=== PATIENT | female | born 1945 | race American Indian/Alaskan Native ===

== ENCOUNTER 2019-09-14 09:39 | Emergency (ER) | payer MEDICARE, BC ==
[~2019-09-14] VITALS: Ht 165.1 cm; Wt 89.9 kg
--- OUTSIDE RECORDS SUMMARY | 2019-09-14 09:42 | XMS REPORT | Summary of Care ---
Author Author Lenore Miranda M.A. Unknown Address [facility] Phone Unavailable Care Team Providers Care Stem Sizer Name Role Phone GET Green, LUIS Unavailable Unavailable ZOE Quiroga, ANI Jarquin Unavailable Lenore Miranda M.A. Unavailable Unavailable ZOE COLLINS PA, ANI OLIVO Unavailable Unavailable GET CH, LUIS Unavailable Unavailable MADELYN YEUNG [place], CORINNE Unavailable Unavailable VIOLETTA COLLINS, ANDREA Castro Unavailable Unavailable VIVI VAZQUEZP, STEPHANIE Unavailable Unavailable CARLOS COLLINS, JESSE Unavailable Unavailable Unavailable Unavailable Functional Status Name Dates Details Functional status health issues are not documented Status: Name Dates Details Cognitive status health issues are not documented Status: Problems Name Dates Details Need for pneumococcal vaccination (V03.82, Z23) Status: Active Visit for screening mammogram (V76.12, Z12.31) Status: Active Hematuria (599.70, R31.9) Status: Active Burning with urination (788.1, R30.0) Status: Active Encounter for mini-mental status examination Status: Active Arthralgia of hand, left (719.44, M25.542) Status: Active Arthralgia of hand, right (719.44, M25.541) Status: Active Arthralgia of both knees (719.46, M25.561) Status: Active Generalized osteoarthritis of multiple sites (715.09, M15.9) Status: Active 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, 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0, Z13.31) Status: Active Acute UTI (599.0, N39.0) Status: Active Obesity (BMI 30-39.9) (278.00, E66.9) Status: Active Dietary counseling (V65.3, Z71.3) Status: Active Low back pain (724.2, M54.5) Status: Active Encounter for hepatitis C virus screening test for high risk patient (V73.89, Z11.59) Status: Active BMI 37.0-37.9, adult (V85.37, Z68.37) Status: Active Mammogram declined (V64.2, Z53.20) Status: Active Colonoscopy refused (V64.2, Z53.20) Status: Active Patient refused evaluation (V64.2, Z53.20) Status: Active Hypothyroidism (244.9, E03.9) Status: Active Heart murmur (785.2, R01.1) Status: Active Urinary tract infection (599.0, N39.0) Status: Active Ascending aorta dilation (447.71, I77.810) Status: Active Acute gastritis without hemorrhage, unspecified gastritis type (535.00, K29.00) Status: Active Dyspepsia (536.8, R10.13) Status: Active Medications Name Dates Details Levothyroxine Sodium 50 MCG Oral Tablet TAKE ONE TABLET BY MOUTH DAILY Quantity: 90 DEUTSCH P.A., LUIS * Start : 22-Aug-2013 Active Tylenol Extra Strength TABS TAKE TABLET PRN * Refills: 0 Active Nebulizer USE DIRECTED. * Quantity: 1 Refills: 0 DEUTSCH P.A., LUIS * Start : 25-May-2017 Active Omeprazole 40 MG Oral Capsule Delayed Release TAKE ONE CAPSULE BY MOUTH DAILY * Quantity: 90 Refills: 1 DEUTSCH P.A., LUIS * Start : 23-Oct-2017 Active TruBiotics Oral Capsule 1 tab qd * Refills: 0 Active Cholestyramine Light 4 GM Oral Packet MIX THE CONTENTS OF 1 POWDER PACKET WITH 2-6 OZ OF NONCARBONATED BEVERAGE AND SW ALLOW ONCE DAILY. * Quantity: 1 Refills: 2 ANI ENRIQUEZ M.D. Start : 19-Jun-2019 Active 60 Packet Box Allergies and Adverse Reactions Name Dates Details Ciprofloxacin HCl TABS (Allergy) Status: Denied Codeine Sulfate TABS (Allergy) Status: Active Colchicine TABS (Allergy) Status: Active Past Medical History Name Dates Details History of allergic rhinitis (V12.69, Z87.09) Status: Resolved History of Aortic valve sclerosis (424.1, I35.8) Status: Resolved History of Arthritis (V13.4) Status: Resolved History of At low risk for fall (V49.89, Z91.81) Status: Resolved History of Depression screening (V79.0, Z13.31) Status: Resolved History of edema (V13.89, Z87.898) Status: Resolved History of Encounter for mini-mental status examination Status: Resolved History of hypothyroidism (V12.29, Z86.39) Status: Resolved History of Osteoarthritis (V13.4) Status: Resolved History of Osteoporosis (733.00, M81.0) Status: Resolved Procedures Procedure Dates Details [N] 2D Echo complete, with Doppler [id number] Date: 21-May-2019 History of Appendectomy Completed History of Hysterectomy Completed History of Knee Replacement Completed Immunization Name Dates Details Zostavax 47726 UNT/0.65ML Subcutaneous Solution Reconstituted on: 19-Mar-2012 Fluzone INJ Lot #: [id number] on: 13-Feb-2013 Fluzone INJ Lot #: [id number] on: 25-Mar-2014 Prevnar 13 Intramuscular Suspension Lot #: [id number] on: 05-Nov-2014 Fluzone Quadrivalent 0.5 ML Intramuscular Suspension Lot #: [id number] on: 13-Feb-2015 Fluzone Quadrivalent 0.25 ML SUSP Lot #: [id number] on: 24-Feb-2016 Pneumovax 23 25 MCG/0.5ML Injection Injectable Lot #: [id number] on: 09-Aug-2016 Fluzone Quadrivalent 0.5 ML Intramuscular Suspension Lot #: [id number] on: 20-Feb-2017 Fluzone High-Dose 0.5 ML Intramuscular Suspension Prefilled Syringe on: 10-Feb-2018 Fluzone High-Dose 0.5 ML Intramuscular Suspension Prefilled Syringe Lot #: [id number] on: 07-Mar-2019 Family History Name Dates Details Family history of Cancer Status: Active Name Dates Details Family history of Arthritis (V17.7) Status: Active Name Dates Details Family history of Diabetes Mellitus (V18.0) Status: Active Social History Name Dates Details - Status: Name Dates Details Never smoker Vital Signs Date Test Result Details :30 BP Systolic 105 mm[Hg] Status: Comments: Location: RUE; Position: Sitting BP Diastolic 61 mm[Hg] Status: Comments: Location: RUE; Position: Sitting Height 64 in Status: Weight 202.125 lb Status: Body Mass Index Calculated 34.69 kg/m2 Status: Body Surface Area Calculated 1.96 m2 Status: Temperature 98.6 f Status: Comments: Method: Oral Heart Rate 68 /min Status: Comments: Location: R Brachial Artery; :31 Physical Findings 0 Status: Comments: PHQ-9 Adult Depression Screening :54 BP Systolic 83 mm[Hg] Status: Comments: Location: LUE; Position: Sitting BP Diastolic 55 mm[Hg] Status: Comments: Location: LUE; Position: Sitting Height 64 in Status: Weight 199.1875 lb Status: Body Mass Index Calculated 34.19 kg/m2 Status: Body Surface Area Calculated 1.95 m2 Status: Temperature 97.2 f Status: Comments: Method: Temporal Heart Rate 88 /min Status: Comments: Location: L Brachial Artery; Respiration Rate 16 /min Status: Physical Findings 0 Status: Comments: Alcohol Screen - How many times in the past yr have you had 5 (for M) or 4 (for F) or 4 (for all > 65yrs) or more drinks in a day? Results Date Description Value Details Results not documented Plan of Care Name Dates Details Planned Observations Planned Goals not documented Planned Encounters Urogynecologist Instructions Name Dates Details Instructions not documented Encounters Appointment; LUIS DEUTSCH PAmandeep Encounter Diagnosis: Problem not documented On: 23-Oct-2017 8:45 Appointment; LUIS DEUTSCH PAmandeep Encounter Diagnosis: Problem not documented On: 09-Apr-2018 8:00 Appointment; LUIS DEUTSCH P.A. Encounter Diagnosis: Problem not documented On: 24-Apr-2018 7:45 Appointment; LUIS DEUTSCH P.A. Encounter Diagnosis: Problem not documented On: 02-Oct-2018 8:45 Appointment; CORINNE JOSHI D.O. Encounter Diagnosis: Problem not documented On: 01-Dec-2018 10:15 Appointment; ELAINE FRITZ NP Encounter Diagnosis: Problem not documented On: 16-Jan-2019 15:30 Appointment; MADDIE NANCE P.A. Encounter Diagnosis: Problem not documented On: 07-Mar-2019 8:30 Appointment; LUIS DEUTSCH P.A. Encounter Diagnosis: Problem not documented On: 16-Apr-2019 10:30 Appointment; STEPHANIE TRINIDAD NP Encounter Diagnosis: Problem not documented On: 21-May-2019 7:30 Appointment; ANI ENRIQUEZ M.D. Encounter Diagnosis: Problem not documented On: 19-Jun-2019 9:00 Appointment; ANI ENRIQUEZ M.D. Encounter Diagnosis: Problem not documented On: 15-Jul-2019 9:30
--- OUTSIDE RECORDS SUMMARY | 2019-09-14 09:42 | XMS REPORT | Summary of Care ---
Author Author ZOE Quiroga, ANI Jordan Unknown Address Unknown Phone Unavailable Care Team Providers Care Sales Operations Name Role Phone GET P.A., LUIS Unavailable Unavailable ANI ENRIQUEZ M.D. Unavailable Britton ENRIQUEZ MD [place], ANI OLIVO Unavailable Unavailable GET CH, LUIS Unavailable Unavailable MADELYN YEUNG [place], CORINNE Unavailable Unavailable VIOLETTA COLLINS, ANDREA Castro [...] Quantity: 1 Refills: 2 ANI ENRIQUEZ M.D. * Start : 19-Jun-2019 Active 60 Packet Box [...] Details [N] 2D Echo complete, with Doppler [id number] Date: 21-May-2019 History of Appendectomy Completed History of Hysterectomy Completed History of Knee Replacement Completed Immunization Name Dates Details Zostavax 40117 UNT/0.65ML Subcutaneous Solution Reconstituted on: 19-Mar-2012 Fluzone INJ Lot #: [id number] on: 13-Feb-2013 Fluzone INJ Lot #: [id number] on: 25-Mar-2014 Prevnar 13 Intramuscular Suspension Lot #: [id number] on: 05-Nov-2014 Fluzone Quadrivalent 0.5 ML Intramuscular Suspension Lot #: [id number] on: 13-Feb-2015 Fluzone Quadrivalent 0.25 ML SUSP Lot #: [id number] on: 24-Feb-2016 Pneumovax 23 25 MCG/0.5ML Injection Injectable Lot #: [id number] on: 09-Aug-2016 Fluzone Quadrivalent 0.5 ML Intramuscular Suspension Lot #: [id number] on: 20-Feb-2017 Fluzone High-Dose 0.5 ML Intramuscular Suspension Prefilled Syringe on: 10-Feb-2018 Fluzone High-Dose 0.5 ML Intramuscular Suspension Prefilled Syringe Lot #: [id number] on: 07-Mar-2019 Family History Name Dates Details [...] Details Planned Observations Planned Goals not documented Interventions Provided Plan* Plan today is to actually release the patient from the post cholecystectomy follow-up. She is doing well and will not need follow-up for at least 3 to 6 months. All questions were answered. Instructions Name Dates Details Instructions not documented Encounters Appointment; LUIS DEUTSCH P.A. Encounter Diagnosis: Problem not documented On: 23-Oct-2017 [...]
--- OUTSIDE RECORDS SUMMARY | 2019-09-14 09:42 | XMS REPORT | Summary of Care ---
Author Author ZOE Quiroga, ANI Jordan Unknown Address Unknown Phone Unavailable Care Team Providers Care Goring Cutter Name Role Phone DEUTSCH P.A., LUIS Unavailable Unavailable ZOE Quiroga, ANI Unavailable Unavailable ZOE COLLINS [place], ANI OLIVO Unavailable Unavailable CARLOS COLLINS, JESSE Unavailable Unavailable GET CH, LUIS Unavailable Unavailable MADELYN YEUNG [place], CORINNE Unavailable Unavailable VIOLETTA COLLINS, ANDREA Castro Unavailable Unavailable VIVI ELECTRO TECH, STEPHANIE Unavailable Unavailable Unavailable Unavailable Functional Status Name [...] R10.13) Status: Active Medications Name Dates Details Furosemide 40 MG Oral Tablet TAKE ONE-HALF TABLET BY MOUTH DAILY NEEDED Quantity: 45 DEUTSCH P.A., LUIS * Start : 23-Sep-2013 Active Levothyroxine Sodium 50 MCG Oral Tablet TAKE ONE TABLET BY MOUTH DAILY * Quantity: 90 Refills: 1 EDUTSCH P.A., LUIS * Start : 22-Aug-2013 Active [...] Details [N] 2D Echo complete, with Doppler [id number] Date: 21-May-2019 History of Appendectomy Completed History of Hysterectomy Completed History of Knee Replacement Completed Immunization Name Dates Details Zostavax 30782 UNT/0.65ML Subcutaneous Solution Reconstituted on: 19-Mar-2012 Fluzone INJ Lot #: [id number] on: 13-Feb-2013 Fluzone INJ Lot #: [id number] on: 25-Mar-2014 Prevnar 13 Intramuscular Suspension Lot #: [id number] on: 05-Nov-2014 Fluzone Quadrivalent 0.5 ML Intramuscular Suspension Lot #: [id number] on: 13-Feb-2015 Fluzone Quadrivalent 0.25 ML SUSP Lot #: [id number] on: 24-Feb-2016 Pneumovax 23 25 MCG/0.5ML Injection Injectable Lot #: [id number] on: 09-Aug-2016 Fluzone Quadrivalent 0.5 ML Intramuscular Suspension Lot #: [id number] on: 20-Feb-2017 Fluzone High-Dose 0.5 ML Intramuscular Suspension Prefilled Syringe on: 10-Feb-2018 Fluzone High-Dose 0.5 ML Intramuscular Suspension Prefilled Syringe Lot #: [id number] on: 07-Mar-2019 Family History Name Dates Details Family history of Cancer Status: Active Name Dates Details Family history of Arthritis (V17.7) Status: Active Name Dates Details Family history of Diabetes Mellitus (V18.0) Status: Active Social History Name Dates Details - Status: Name Dates Details Never smoker Vital Signs Date Test Result Details :31 Physical Findings 0 Status: Comments: PHQ-9 [...] 65yrs) or more drinks in a day? :44 BP Systolic 121 mm[Hg] Status: Comments: Location: LUE; Position: Sitting BP Diastolic 63 mm[Hg] Status: Comments: Location: LUE; Position: Sitting Height 64 in Status: Weight 211.125 lb Status: Body Mass Index Calculated 36.24 kg/m2 Status: Body Surface Area Calculated 2 m2 Status: Temperature 97.8 f Status: Comments: Method: Temporal Heart Rate 61 /min Status: Respiration Rate 16 /min Status: Physical Findings 0 Status: Comments: Alcohol Screen - How many times in the past yr have you had 5 (for M) or 4 (for F) or 4 (for all > 65yrs) or more drinks in a day? Physical Findings 0 Status: Comments: Pain Scale Results Date Description Value Details :04 [O] Urine Dipstick (In Office) Glucose negative (Normal) LEUKOCYTES large NITRITE negative (Normal) UROBILINOGEN negative (Normal) PROTEIN 30 pH 5 (Normal) URINE BLOOD 250 SPECIFIC GRAVITY 1.010 KETONES negative (Normal) BILIRUBIN negative (Normal) COLOR URINE yellow (Normal) APPEARANCE clear (Normal) [id number] [[facility]] CULTURE, URINE, ROUTINE CULTURE (Abnormal) Comments: CULTURE, URINE, ROUTINE Micro Number: [id number] Test Status: Final Specimen Source: URINE Specimen Quality: Adequate Result: Greater than 100,000 CFU/mL of E scherichia coli E.coli INT PATRICK AMOX/CLAVULANATE S <=2 AMPICILLIN S <=2 AMP/SULBACTAM S <=2 CEFAZOLIN NR <=4 2 CEFEPIME S <=1 CEFTRIAXONE S <=1 CIPROFLOXACIN S <=0.25 GENTAMICIN S <=1 IMIPENEM S <=0.25 LEVOFLOXACIN S <=0.12 NITROFURANTOIN S <=16 PIP/TAZOBACTAM S <=4 TOBRAMYCIN S <=1 TRIMETHOPRIM/SULFA S <=20S=Susceptible I=Intermediate R=Resistant *=Not TestedNR=Not Reported NN=See Therapy CommentsTHERAPY COMMENTS Note 1: For infections other than uncomplicated UTI caused by E. coli, K. pneumoniae or P. mirabilis: Cefazolin is resistant if PATRICK > or=8 mcg/mL. (Distinguishing susceptible versus intermediate for isolates with PATRICK < or=4 mcg/mL requires additional testing.) Note 2: For uncomplicated UTI caused by E. coli, K. pneumoniae or P. mirabilis: Cefazolin is susceptible if PATRICK <32 mcg/mL and predicts susceptible to the oral agents cefaclor, cefdinir, cefpodoxime, cefprozil, cefuroxime, cephalexin and loracarbef. Plan of Care Name Dates Details Planned Observations Planned Goals not documented Interventions Provided Medication Changes* Cholestyramine Light 4 GM Oral Packet - Start Plan* The patient's discomfort today may be due to her previous history of acid indigestion but also potentially could be related to bile reflux gastritis. Advised to restart her omeprazole if this is not effective after the next few days she can picker and packer the prescription for Ward Otero to the pharmacy. She will contact us in a few days for follow-up by phone. Of note she is not taking the furosemide nor other medications for her blood pressure. Her blood pressure today is low and she is slightly symptomatic with this. This will be followed as necessary. All questions were answered. Instructions Name Dates Details Instructions not documented Encounters Appointment; MADDIE NANCE P.A. Encounter Diagnosis: Problem not documented On: 19-Jun-2017 14:00 Appointment; LUIS DEUTSCH P.A. Encounter Diagnosis: Problem not documented On: 23-Oct-2017 8:45 Appointment; LUIS DEUTSCH P.A. Encounter Diagnosis: Problem not documented On: 09-Apr-2018 [...] not documented On: 21-May-2019 7:30 Appointment; ANI ENRIQEUZ M.D. Encounter Diagnosis: Problem not documented On: 19-Jun-2019 9:00
--- OUTSIDE RECORDS SUMMARY | 2019-09-14 09:42 | XMS REPORT | Summary of Care ---
Author Author ZOE Quiroga, ANI Jordan Unknown Address Unknown Phone Unavailable Care Team Providers Care Retort Furnace Helper Name Role Phone GET P.A., LUIS Unavailable Unavailable ANI ENRIQUEZ M.D. Unavailable Britton ENRIQUEZ MD [place], ANI OLIVO Unavailable Unavailable GET CH, LUIS Unavailable Unavailable MADELYN YEUNG [place], CORINNE Unavailable Unavailable VIOLETTA COLLINS, ANDREA Csatro Unavailable Unavailable VIVI VAZQUEZP, STEPHANIE Unavailable Unavailable [...] Details [N] 2D Echo complete, with Doppler [id number] Date: 21-May-2019 History of Appendectomy Completed History of Hysterectomy Completed History of Knee Replacement Completed Immunization Name Dates Details Zostavax 14773 UNT/0.65ML Subcutaneous Solution Reconstituted on: 19-Mar-2012 Fluzone INJ Lot #: [id number] on: 13-Feb-2013 Fluzone INJ Lot #: [id number] on: 25-Mar-2014 Prevnar 13 Intramuscular Suspension Lot #: [id number] on: 05-Nov-2014 Fluzone Quadrivalent 0.5 ML Intramuscular Suspension Lot #: [id number] on: 13-Feb-2015 Fluzone Quadrivalent 0.25 ML SUSP Lot #: [id number] on: 24-Feb-2016 Pneumovax 23 25 MCG/0.5ML Injection Injectable Lot #: [id number] on: 09-Aug-2016 Fluzone Quadrivalent 0.5 ML Intramuscular Suspension Lot #: [id number] on: 20-Feb-2017 Fluzone High-Dose 0.5 ML Intramuscular Suspension Prefilled Syringe on: 10-Feb-2018 Fluzone High-Dose 0.5 ML Intramuscular Suspension Prefilled Syringe Lot #: [id number] on: 07-Mar-2019 Family History Name Dates Details [...] Planned Goals not documented Planned Encounters Urogynecologist Urogynecologist Instructions Name Dates Details Instructions not documented Encounters Appointment; LUIS DEUTSCH P.A. Encounter Diagnosis: Problem not documented On: 23-Oct-2017 8:45 Appointment; LUIS DEUTSCH PAmandeep Encounter Diagnosis: Problem not documented On: 09-Apr-2018 8:00 Appointment; LUIS DEUTSCH PAmandeep Encounter Diagnosis: Problem not documented On: 24-Apr-2018 [...]
--- OUTSIDE RECORDS SUMMARY | 2019-09-14 09:43 | XMS REPORT | Summary of Care ---
Author Author Mundo Meade, Sarah Organization Unknown Address Unknown Phone Unavailable Care Team Providers Care Grocery Store Courtesy Clerk Name Role Phone GET P.A., LUIS Unavailable Unavailable RODRI Sierra, SUDHAKAR Unavailable Unavailable Mundo Meade, May Unavailable Unavailable ZOE COLLINS DE, ANI OLIVO Unavailable Unavailable GET CH, LUIS Unavailable Unavailable MADELYN YEUNG DE, CORINNE Unavailable Unavailable VIOLETTA COLLINS, ADNREA Castro Unavailable Unavailable ZOE Quiroga, ANI Unavailable Unavailable CARLOS COLLINS, JESSE Unavailable Unavailable RODRI YEUNG, SUDHAKAR Ornelas Unavailable Unavailable VIVI DONOHUE, STEPHANIE Unavailable Unavailable Unavailable Unavailable Functional Status [...] Status: Active Dyspepsia (536.8, R10.13) Status: Active Nocturia (788.43, R35.1) Status: Active Urgency incontinence (788.31, N39.41) Status: Active Urgency of urination (788.63, R39.15) Status: Active Vaginal atrophy (627.3, N95.2) Status: Active Constipation in female (564.00, K59.00) Status: Active Rectocele (618.04, N81.6) Status: Active 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 * Quantity: 1 Refills: 1 RODRI D.Sam SUDHAKAR * Start : 14-Aug-2019 Active 30 GM Tube Allergies and Adverse Reactions Name Dates Details [...] M81.0) Status: Resolved Procedures Procedure Dates Details History of Appendectomy Completed History of Hysterectomy Completed History of Knee Replacement Completed Immunization Name Dates Details Zostavax 26912 UNT/0.65ML Subcutaneous Solution Reconstituted on: 19-Mar-2012 Fluzone INJ Lot #: [id number] on: 13-Feb-2013 Fluzone INJ Lot #: [id number] on: 25-Mar-2014 Prevnar 13 Intramuscular Suspension Lot #: [id number] on: 05-Nov-2014 Fluzone Quadrivalent 0.5 ML Intramuscular Suspension Lot #: [id number] on: 13-Feb-2015 Fluzone Quadrivalent 0.25 ML SUSP Lot #: [id number] on: 24-Feb-2016 Pneumovax 23 25 MCG/0.5ML Injection Injectable Lot #: [id number] on: 09-Aug-2016 Fluzone Quadrivalent 0.5 ML Intramuscular Suspension Lot #: [id number] on: 20-Feb-2017 Fluzone High-Dose 0.5 ML Intramuscular Suspension Prefilled Syringe on: 10-Feb-2018 Fluzone High-Dose 0.5 ML Intramuscular Suspension Prefilled Syringe Lot #: [id number] on: 07-Mar-2019 Family History Name Dates Details Family history of Cancer Status: Active Name Dates Details Family history of Arthritis (V17.7) Status: Active Name Dates Details Family history of Diabetes Mellitus (V18.0) Status: Active Social History Name Dates Details - Status: Name Dates Details Never smoked tobacco (finding) Vital Signs Date Test Result Details [id number] Systolic blood pressure 106 mm[Hg] Status: Comments: Location: LUE; Position: Sitting Diastolic blood pressure 68 mm[Hg] Status: Comments: Location: LUE; Position: Sitting Body height 64 in Status: Weight 202 lb Status: Body mass index (BMI) [Ratio] 34.67 kg/m2 Status: Body surface area Derived from formula 1.96 m2 Status: Body temperature 97.8 f Status: Comments: Method: Oral Heart Rate 64 /min Status: Results Date Description Value Details Results not documented Plan of Care Name Dates Details Planned Observations Planned Goals not documented Planned Encounters Appointment; SUDHAKAR MACE D.O. On: 16-Sep-2019 11:30 Interventions Provided Discussion/Summary* Guideline Used: * Other: No guideline * Silvana MS * Pt called stating that MD was to sent a RX for Premarin to pharmacy on file. Transfer pt to contact staff for Dr. Mace. * Intended Caller Action: * Other: medication refill Instructions Name Dates Details Instructions not documented [...] documented On: 01-Dec-2018 10:15 Appointment; ELAINE FRITZ APRN Encounter Diagnosis: Problem not documented On: 16-Jan-2019 15:30 Appointment; MADDIE NANCE P.A. Encounter Diagnosis: Problem not documented On: 07-Mar-2019 8:30 Appointment; LUIS DEUTSCH P.A. Encounter Diagnosis: Problem not documented On: 16-Apr-2019 10:30 Appointment; STEPHANIE TRINIDAD APRN Encounter Diagnosis: Problem not documented On: 21-May-2019 7:30 Appointment; ANI ENRIQUEZ M.D. Encounter Diagnosis: Problem not documented On: 19-Jun-2019 9:00 Appointment; ANI ENRIQUEZ M.D. Encounter Diagnosis: Problem not documented On: 15-Jul-2019 9:30 Appointment; SUDHAKAR MACE D.O. Encounter Diagnosis: Problem not documented On: 12-Aug-2019 12:45
--- OUTSIDE RECORDS SUMMARY | 2019-09-14 09:43 | XMS REPORT | Summary of Care ---
Author Author RODRI Sierra, SUDHAKAR Jordan Unknown Address Unknown Phone Unavailable Care Team Providers Care Advanced Practice Professional Name Role Phone GET P.A., LUIS Unavailable Unavailable RODRI Sierra, SUDHAKAR Unavailable Unavailable ZOE COLLINS ND, ANI OLIVO Unavailable Unavailable GET CH, LUIS Unavailable Unavailable MADELYN YEUNG ND, CORINNE Unavailable Unavailable VIOLETTA COLLINS, ANDREA Castro Unavailable Unavailable ZOE Quiroga, ANI Unavailable Unavailable JESSE GONZALEZ MD Unavailable Unavailable RODRI YEUNG, SUDHAKAR Ornelas Unavailable Unavailable VIVI VAZQUEZPSTEPHANIE Unavailable Unavailable Unavailable Unavailable Functional Status Name [...] TAKE TABLET PRN * Refills: 0 Active Omeprazole 40 MG Oral Capsule Delayed Release TAKE ONE CAPSULE BY MOUTH DAILY * Quantity: 90 Refills: 1 DEUTSCH P.A., LUIS * Start : 23-Oct-2017 Active TruBiotics Oral Capsule 1 tab qd * Refills: 0 Active Allergies and Adverse Reactions Name Dates Details [...] Replacement Completed Immunization Name Dates Details Zostavax 66420 UNT/0.65ML Subcutaneous Solution Reconstituted on: 19-Mar-2012 Fluzone INJ Lot #: [id number] on: 13-Feb-2013 Fluzone INJ Lot #: [id number] on: 25-Mar-2014 Prevnar 13 Intramuscular Suspension Lot #: [id number] on: 05-Nov-2014 Fluzone Quadrivalent 0.5 ML Intramuscular Suspension Lot #: [id number] on: 13-Feb-2015 Fluzone Quadrivalent 0.25 ML SUSP Lot #: [id number] on: 24-Feb-2016 Pneumovax 23 25 MCG/0.5ML Injection Injectable Lot #: [id number] on: 09-Aug-2016 Fluzone Quadrivalent 0.5 ML Intramuscular Suspension Lot #: [id number] on: 20-Feb-2017 Fluzone High-Dose 0.5 ML Intramuscular Suspension Prefilled Syringe on: 10-Feb-2018 Fluzone High-Dose 0.5 ML Intramuscular Suspension Prefilled Syringe Lot #: [id number] on: 07-Mar-2019 Family History Name Dates Details Family history of Cancer Status: Active Name Dates Details Family history of Arthritis (V17.7) Status: Active Name Dates Details Family history of Diabetes Mellitus (V18.0) Status: Active Social History Name Dates Details - Status: Name Dates Details Never smoked tobacco (finding) Vital Signs Date Test Result Details 2-[id number]:04 Systolic blood pressure 106 mm[Hg] Status: Comments: Location: LUE; Position: Sitting Diastolic blood pressure 68 mm[Hg] Status: Comments: Location: LUE; Position: Sitting Body height 64 in Status: Weight 202 lb Status: Body mass index (BMI) [Ratio] 34.67 kg/m2 Status: Body surface area Derived from formula 1.96 m2 Status: Body temperature 97.8 f Status: Comments: Method: Oral Heart Rate 64 /min Status: 15-Jul-20199:30 Systolic blood pressure 105 mm[Hg] Status: Comments: Location: RUE; Position: Sitting Diastolic blood pressure 61 mm[Hg] Status: Comments: Location: RUE; Position: Sitting Body height 64 in Status: Weight 202.125 lb Status: Body mass index (BMI) [Ratio] 34.69 kg/m2 Status: Body surface area Derived from formula 1.96 m2 Status: Body temperature 98.6 f Status: Comments: Method: Oral Heart Rate 68 /min Status: Comments: Location: R Brachial Artery; Results Date Description Value Details Results not documented Plan of Care Name Dates Details Planned Observations Planned Goals not documented Planned Encounters Appointment; SUDHAKAR MACE D.O. On: 16-Sep-2019 11:30 Interventions Provided Discussion/Summary* 1. 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 vaginal atrophy * - discussed role of estrogen in the vagina, discussed r/b/a of vaginal estrogen * - AUGS handout given * - RX for premarin * 3. UU/UF/UUI/ nocturia/ OAB * - discussed behavior modification, fluid restriction, bladder training, IUGA handout given * - trial of myrbetric * - * 4. constipation * - discussed role of constipation in general health and in relation to pelvic organs * - discussed conservative mgmt, fiber supplement, proper tolieting, IUGA handout given * - discussed if continues to become an issue and no resolution with conservative measures, using miralax, and possibly medications such as linzess may be appropriate in the future * Total visit time of 60 minutes with >50% of the time spent face to face counseling and coordinating plan of care with the patient. * RTC in 1 mo. Instructions Name Dates Details Instructions not documented [...]
--- OUTSIDE RECORDS SUMMARY | 2019-09-14 09:43 | XMS REPORT | Summary of Care ---
Author Author Michelle Murphy Organization Unknown Address Unknown Phone Unavailable Care Team Providers Care Hospital Security Officer Name Role Phone DEUTSCH P.A., LUIS Unavailable Unavailable ZOE Quiroga, ANI Jarquin Unavailable Michelle Murphy Unavailable Unavailable ZOE COLLINS NE, ANI OLIVO Unavailable Unavailable GET CH, LUIS Unavailable Unavailable MADELYN YEUNG [place], CORINNE Unavailable Unavailable VIOLETTA COLLINS, ANDREA Castro Unavailable Unavailable VIVI VAZQUEZP, STEPHANIE Unavailable Unavailable CARLOS COLLINS, JESSE Unavailable Unavailable Unavailable Unavailable Functional Status Name Dates Details Functional status health issues are not documented Status: Name Dates Details Cognitive status health issues are not documented Status: Problems Name Dates Details Burning with urination (788.1, R30.0) Status: Active Ascending aorta dilation (447.71, I77.810) Status: Active GERD without esophagitis (530.81, K21.9) Status: Active Need for pneumococcal vaccination (V03.82, Z23) Status: Active At low risk for fall (V49.89, Z91.81) Status: Active Encounter for mini-mental status examination Status: Active Osteoarthritis (715.90, M19.90) Status: Active Flu vaccine need (V04.81, Z23) Status: Active Visit for screening mammogram (V76.12, Z12.31) Status: Active Shortness of breath (786.05, R06.02) Status: Active Hypothyroidism (244.9, E03.9) Status: Active Pedal edema (782.3, R60.0) Status: Active Depression screening (V79.0, Z13.31) Status: Active Depression screening (V79.0, Z13.31) Status: Active Bronchitis, acute (466.0, J20.9) Status: Active Hematuria (599.70, R31.9) Status: Active Low back pain (724.2, M54.5) Status: Active Patient refused evaluation (V64.2, Z53.20) Status: Active Acute bacterial bronchitis (466.0, J20.8) Status: Active Colonoscopy refused (V64.2, Z53.20) Status: Active BMI 37.0-37.9, adult (V85.37, Z68.37) Status: Active Mammogram declined (V64.2, Z53.20) Status: Active Dyspepsia (536.8, R10.13) Status: Active Acute gastritis without hemorrhage, unspecified gastritis type (535.00, K29.00) Status: Active Cough, persistent (786.2, R05) Status: Active Encounter for hepatitis C virus screening test for high risk patient (V73.89, Z11.59) Status: Active Heart murmur (785.2, R01.1) Status: Active Urinary tract infection (599.0, N39.0) Status: Active Acute UTI (599.0, N39.0) Status: Active Obesity (BMI 30-39.9) (278.00, E66.9) Status: Active Dietary counseling (V65.3, Z71.3) Status: Active Upper respiratory infection (465.9, J06.9) Status: Active Generalized osteoarthritis of multiple sites (715.09, M15.9) Status: Active Arthralgia of hand, left (719.44, M25.542) Status: Active Arthralgia of hand, right (719.44, M25.541) Status: Active Arthralgia of both knees (719.46, M25.561) Status: Active 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, 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) Status: Active Medications Name Dates Details Levothyroxine [...] Details [N] 2D Echo complete, with Doppler 84416 Date: 21-May-2019 History of Hysterectomy Completed History of Appendectomy Completed History of Knee Replacement Completed Immunization Name Dates Details Zostavax 02124 UNT/0.65ML Subcutaneous Solution Reconstituted on: 19-Mar-2012 Fluzone INJ Lot #: [id number] on: 13-Feb-2013 Fluzone INJ Lot #: [id number] on: 25-Mar-2014 Prevnar 13 Intramuscular Suspension Lot #: [id number] on: 05-Nov-2014 Fluzone Quadrivalent 0.5 ML Intramuscular Suspension Lot #: [id number] on: 13-Feb-2015 Fluzone Quadrivalent 0.25 ML SUSP Lot #: [id number] on: 24-Feb-2016 Pneumovax 23 25 MCG/0.5ML Injection Injectable Lot #: [id number] on: 09-Aug-2016 Fluzone Quadrivalent 0.5 ML Intramuscular Suspension Lot #: [id number] on: 20-Feb-2017 Fluzone High-Dose 0.5 ML Intramuscular Suspension Prefilled Syringe on: 10-Feb-2018 Fluzone High-Dose 0.5 ML Intramuscular Suspension Prefilled Syringe Lot #: [id number] on: 07-Mar-2019 Family History Name Dates Details [...] /min Status: Comments: Location: R Brachial Artery; 5-Fpg-128175:31 Physical Findings 0 Status: Comments: PHQ-9 Adult [...] Planned Goals not documented Planned Encounters Urogynecologist Appointment; SUDHAKAR MACE D.O. On: 12-Aug-2019 12:45 Instructions Name Dates Details Instructions not documented [...]
--- OUTSIDE RECORDS SUMMARY | 2019-09-14 09:43 | XMS REPORT | Summary of Care ---
Author Author Samantha Thorne R.N. Unknown Address [facility] Phone Unavailable Care Team Providers Care Non Licensed Nuclear Plant Operator Name Role Phone GET Green, LUIS Unavailable Unavailable RODRI Sierra, SUDHAKAR Unavailable Unavailable ZOE COLLINS [place], ANI OLIVO Unavailable Unavailable GET CH, LUIS Unavailable Unavailable MADELYN YEUNG [place], CORINNE Unavailable Unavailable VIOLETTA COLLINS, ANDREA Castro Unavailable Unavailable ZOE Quiroga, ANI Unavailable Unavailable CARLOS COLLINS, JESSE Unavailable Unavailable RODRI YEUNG, SUDHAKAR Ornelas Unavailable Unavailable VIVI VAZQUEZP, STEPHANIE Unavailable Unavailable Unavailable Unavailable Functional Status [...] Week. * Quantity: 1 Refills: 1 RODRI Foster.SUDHAKAR Vargas * Start : 14-Aug-2019 Active 30 GM [...] Replacement Completed Immunization Name Dates Details Zostavax 18686 UNT/0.65ML Subcutaneous Solution Reconstituted on: 19-Mar-2012 Fluzone INJ Lot #: [id number] on: 13-Feb-2013 Fluzone INJ Lot #: [id number] on: 25-Mar-2014 Prevnar 13 Intramuscular Suspension Lot #: [id number] on: 05-Nov-2014 Fluzone Quadrivalent 0.5 ML Intramuscular Suspension Lot #: [id number] on: 13-Feb-2015 Fluzone Quadrivalent 0.25 ML SUSP Lot #: [id number] on: 24-Feb-2016 Pneumovax 23 25 MCG/0.5ML Injection Injectable Lot #: [id number] on: 09-Aug-2016 Fluzone Quadrivalent 0.5 ML Intramuscular Suspension Lot #: [id number] on: 20-Feb-2017 Fluzone High-Dose 0.5 ML Intramuscular Suspension Prefilled Syringe on: 10-Feb-2018 Fluzone High-Dose 0.5 ML Intramuscular Suspension Prefilled Syringe Lot #: [id number] on: 07-Mar-2019 Family History Name Dates Details Family history of Cancer Status: Active Name Dates Details Family history of Arthritis (V17.7) Status: Active Name Dates Details Family history of Diabetes Mellitus (V18.0) Status: Active Social History Name Dates Details - Status: Name Dates Details Never smoked tobacco (finding) Vital Signs Date Test Result Details 2-Zqc-[id number]:04 Systolic blood pressure 106 mm[Hg] Status: Comments: [...] MACE D.O. On: 16-Sep-2019 11:30 Interventions Provided Medication Changes* Premarin 0.625 MG/GM Vaginal Cream - Start Discussion/Summary* 1. 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
--- OUTSIDE RECORDS SUMMARY | 2019-09-14 09:43 | XMS REPORT | Summary of Care ---
Author Author Hermila Santos M.A. Organization Unknown Address [facility] Phone Unavailable Care Team Providers Care Heel Washer Stringing Machine Operator Name Role Phone GET P.AJose, LUIS Unavailable Unavailable Hermila Santos M.A. Unavailable Unavailable RODRI Sierra, SUDHAKAR Unavailable Unavailable ZOE COLLINS CT, ANI OLIVO Unavailable Unavailable GET CH, LUIS Unavailable Unavailable MADELYN YEUNG CT, CORINNE Unavailable Unavailable VIOLETTA COLLINS, ANDREA Castro [...] 1 tab qd * Refills: 0 Active Estradiol 0.1 MG/GM Vaginal Cream INSERT 0.5 GRAMS VAGINALLY 2 TIMES PER WEEK AT BEDTIME * Quantity: 1 Refills: 1 DOUGHER D.O., SUDHAKAR * Start : 20-Aug-2019 Active 42.5 GM Tube Allergies and Adverse Reactions Name [...] Replacement Completed Immunization Name Dates Details Zostavax 32185 UNT/0.65ML Subcutaneous Solution Reconstituted on: 19-Mar-2012 Fluzone INJ Lot #: [id number] on: 13-Feb-2013 Fluzone INJ Lot #: [id number] on: 25-Mar-2014 Prevnar 13 Intramuscular Suspension Lot #: [id number] on: 05-Nov-2014 Fluzone Quadrivalent 0.5 ML Intramuscular Suspension Lot #: [id number] on: 13-Feb-2015 Fluzone Quadrivalent 0.25 ML SUSP Lot #: [id number] on: 24-Feb-2016 Pneumovax 23 25 MCG/0.5ML Injection Injectable Lot #: [id number] on: 09-Aug-2016 Fluzone Quadrivalent 0.5 ML Intramuscular Suspension Lot #: [id number] on: 20-Feb-2017 Fluzone High-Dose 0.5 ML Intramuscular Suspension Prefilled Syringe on: 10-Feb-2018 Fluzone High-Dose 0.5 ML Intramuscular Suspension Prefilled Syringe Lot #: [id number] on: 07-Mar-2019 Family History Name Dates Details Family history of Cancer Status: Active Name Dates Details Family history of Arthritis (V17.7) Status: Active Name Dates Details Family history of Diabetes Mellitus (V18.0) Status: Active Social History Name Dates Details - Status: Name Dates Details Never smoked tobacco (finding) Vital Signs Date Test Result Details 6-Hqt-386172:04 Systolic blood pressure 106 mm[Hg] Status: Comments: [...] On: 16-Sep-2019 11:30 Interventions Provided Medication Changes* Estradiol 0.1 MG/GM Vaginal Cream - Start Instructions Name Dates Details Instructions not documented [...]
--- OUTSIDE RECORDS SUMMARY | 2019-09-14 09:43 | XMS REPORT | Summary of Care ---
Author Author RODRI Sierra, SUDHAKAR Jordan Unknown Address Unknown Phone Unavailable Care Team Providers Care Surveyor Chain Helper Name Role Phone GET P.A., LUIS Unavailable Unavailable RODRI Sierra, SUDHAKAR Unavailable Unavailable ZOE COLLINS [place], ANI OLIVO Unavailable Unavailable GET CH, LUIS Unavailable Unavailable MADELYN YEUNG [place], CORINNE Unavailable Unavailable VIOLETTA COLLINS, ANDREA Castro [...] Replacement Completed Immunization Name Dates Details Zostavax 35086 UNT/0.65ML Subcutaneous Solution Reconstituted on: 19-Mar-2012 Fluzone INJ Lot #: [id number] on: 13-Feb-2013 Fluzone INJ Lot #: [id number] on: 25-Mar-2014 Prevnar 13 Intramuscular Suspension Lot #: [id number] on: 05-Nov-2014 Fluzone Quadrivalent 0.5 ML Intramuscular Suspension Lot #: [id number] on: 13-Feb-2015 Fluzone Quadrivalent 0.25 ML SUSP Lot #: [id number] on: 24-Feb-2016 Pneumovax 23 25 MCG/0.5ML Injection Injectable Lot #: [id number] on: 09-Aug-2016 Fluzone Quadrivalent 0.5 ML Intramuscular Suspension Lot #: [id number] on: 20-Feb-2017 Fluzone High-Dose 0.5 ML Intramuscular Suspension Prefilled Syringe on: 10-Feb-2018 Fluzone High-Dose 0.5 ML Intramuscular Suspension Prefilled Syringe Lot #: [id number] on: 07-Mar-2019 Family History Name Dates Details Family history of Cancer Status: Active Name Dates Details Family history of Arthritis (V17.7) Status: Active Name Dates Details Family history of Diabetes Mellitus (V18.0) Status: Active Social History Name Dates Details - Status: Name Dates Details Never smoked tobacco (finding) Vital Signs Date Test Result Details [id number]-Rjh-[id number]:04 Systolic blood pressure 106 mm[Hg] Status: Comments: [...] Planned Goals not documented Planned Encounters Appointment; SUDHKAAR MACE D.O. On: 16-Sep-2019 11:30 Interventions Provided Medication Changes* Premarin 0.625 MG/GM Vaginal Cream - Start Discussion/Summary* 1. 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
--- OUTSIDE RECORDS SUMMARY | 2019-09-14 09:43 | XMS REPORT | Summary of Care ---
Author Author RODRI Sierra, SUDHAKAR Jordan Unknown Address Unknown Phone Unavailable Care Team Providers Care Marketing Analytics Specialist Name Role Phone DEUTSCH P.A., LUIS Unavailable Unavailable Tom Oneil, Hermila Unavailable Unavailable SUDHAKAR MACE D.O. Unavailable Unavailable ZOE COLLINS [place], ANI OLIVO Unavailable Unavailable GET CH, LUIS Unavailable Unavailable MADELYN YEUNG [place], CORINNE Unavailable Unavailable VIOLETTA COLLINS, ANDREA Castro Unavailable Unavailable ZOE Quiroga, ANI Unavailable Unavailable JESSE GONZALEZ MD Unavailable Unavailable RODRI YEUNG, SUDHAKAR Ornelas Unavailable Unavailable STEPHANIE ALAN Unavailable Unavailable Unavailable Unavailable Functional Status Name [...] Replacement Completed Immunization Name Dates Details Zostavax 09289 UNT/0.65ML Subcutaneous Solution Reconstituted on: 19-Mar-2012 Fluzone INJ Lot #: [id number] on: 13-Feb-2013 Fluzone INJ Lot #: [id number] on: 25-Mar-2014 Prevnar 13 Intramuscular Suspension Lot #: [id number] on: 05-Nov-2014 Fluzone Quadrivalent 0.5 ML Intramuscular Suspension Lot #: [id number] on: 13-Feb-2015 Fluzone Quadrivalent 0.25 ML SUSP Lot #: [id number] on: 24-Feb-2016 Pneumovax 23 25 MCG/0.5ML Injection Injectable Lot #: [id number] on: 09-Aug-2016 Fluzone Quadrivalent 0.5 ML Intramuscular Suspension Lot #: [id number] on: 20-Feb-2017 Fluzone High-Dose 0.5 ML Intramuscular Suspension Prefilled Syringe on: 10-Feb-2018 Fluzone High-Dose 0.5 ML Intramuscular Suspension Prefilled Syringe Lot #: [id number] on: 07-Mar-2019 Family History Name Dates Details Family history of Cancer Status: Active Name Dates Details Family history of Arthritis (V17.7) Status: Active Name Dates Details Family history of Diabetes Mellitus (V18.0) Status: Active Social History Name Dates Details - Status: Name Dates Details Never smoked tobacco (finding) Vital Signs Date Test Result Details 6-[id number]:04 Systolic blood pressure 106 mm[Hg] Status: Comments: [...]
--- OUTSIDE RECORDS SUMMARY | 2019-09-14 09:43 | XMS REPORT | Summary of Care ---
Author Author Lenore Miranda M.A. Unknown Address [facility] Phone Unavailable Care Team Providers Care Seo Manager Name Role Phone GET Green, LUIS Unavailable Unavailable ZOE Quiroga, ANI Unavailable Britton ENRIQUEZ MD [place], ANI OLIVO Unavailable Unavailable GET CH, LUIS Unavailable Unavailable MADELYN YEUNG [place], CORINNE Unavailable Unavailable VIOLETTA COLLINS, ANDREA Castro [...] Details [N] 2D Echo complete, with Doppler 71604 Date: 21-May-2019 History of Hysterectomy Completed History of Appendectomy Completed History of Knee Replacement Completed Immunization Name Dates Details Zostavax 62972 UNT/0.65ML Subcutaneous Solution Reconstituted on: 19-Mar-2012 Fluzone INJ Lot #: [id number] on: 13-Feb-2013 Fluzone INJ Lot #: [id number] on: 25-Mar-2014 Prevnar 13 Intramuscular Suspension Lot #: [id number] on: 05-Nov-2014 Fluzone Quadrivalent 0.5 ML Intramuscular Suspension Lot #: [id number] on: 13-Feb-2015 Fluzone Quadrivalent 0.25 ML SUSP Lot #: [id number] on: 24-Feb-2016 Pneumovax 23 25 MCG/0.5ML Injection Injectable Lot #: [id number] on: 09-Aug-2016 Fluzone Quadrivalent 0.5 ML Intramuscular Suspension Lot #: [id number] on: 20-Feb-2017 Fluzone High-Dose 0.5 ML Intramuscular Suspension Prefilled Syringe on: 10-Feb-2018 Fluzone High-Dose 0.5 ML Intramuscular Suspension Prefilled Syringe Lot #: [id number] on: 07-Mar-2019 Family History Name Dates Details [...] /min Status: Comments: Location: R Brachial Artery; 5-Aeb-[id number]:31 Physical Findings 0 Status: Comments: PHQ-9 Adult [...] Observations Planned Goals not documented Interventions Provided Follow-ups/Referrals* Urogynecologist; To Be Done: 15 Jul 2019 Plan* Plan today is to actually release [...] not documented On: 16-Apr-2019 10:30 Appointment; STEPHANIE TRINDIAD NP Encounter Diagnosis: Problem not documented On: 21-May-2019 7:30 Appointment; ANI ENRIQUEZ M.D. Encounter Diagnosis: Problem not documented On: 19-Jun-2019 9:00 Appointment; ANI ENRIQUEZ M.D. Encounter Diagnosis: Problem not documented On: 15-Jul-2019 9:30
[2019-09-14] MEDS ORDERED: LEVOTHYROXINE75 MCG PO (10:15)
[2019-09-14] MEDS ORDERED: BENEFIBER1 EAC1 (10:15)
--- NOTE | 2019-09-14 10:43 | Diagnostic Imaging Report ---
WRIST 2 VIEW RT - HOPD - Multiple views HISTORY: ^trauma, fx ^[id number] ^[id number] COMPARISON: None available. FINDINGS: Bones: The bones are markedly demineralized. No acute displaced fracture. Osseous alignment is within normal limits. Joints: There is moderate joint space narrowing and bone production compatible with osteoarthritis. Soft tissues: The soft tissues appear unremarkable. IMPRESSION: No acute displaced fracture. Signed by: Darrin Perez MD on 09/14/2019 10:39 AM
[2019-09-14 11:52] VITALS: BP 112/69
== END 2019-09-14 11:16 | disposition home or self-care (01) ==
LOC: FSED 09:39
DX: S63.521A Sprain of radiocarpal joint of right wrist, initial encounter (principal); S63.641A Sprain of metacarpophalangeal joint of right thumb, initial encounter; W01.0XXA Fall on same level from slipping, tripping and stumbling without subsequent striking against object, initial encounter; Y93.01 Activity, walking, marching and hiking; Y92.008 Other place in unspecified non-institutional (private) residence as the place of occurrence of the external cause; E03.9 Hypothyroidism, unspecified
CPT/HCPCS: 99284